=== PATIENT | female | born 1995 | race Caucasian/White ===

== ENCOUNTER 2017-06-28 17:57 | Emergency (ER) | payer MEDICAID, OTHER ==
[~2017-06-28] VITALS: Ht 154.9 cm; Wt 104.0 kg
[2017-06-28 18:08] VITALS: Ht 154.9 cm; Wt 104.0 kg
--- NOTE | 2017-06-28 20:00 | RADRPT ---
PROCEDURE: US OB. CLINICAL INDICATION: Vaginal bleeding Positive TECHNIQUE: Transabdominal and transvaginal views of the pelvis are available for review. COMPARISON: No prior studies are available for comparison. FINDINGS: Uterus: No evidence of masses and normal in size estimated at 8.2 x 6 x 5.8 cm. Endometrial cavity: Intrauterine gestational sac, yolk sac and pole are present with the foll owing information: [place]-rump length:1.58 cm heart rate:NOT DETECTED Gestational sac:3.17 cm Ultrasound estimated gestational age:8 weeks 1 day Small hypoechoic subchorionic hemorrhage measures 1.2cm. Right ovary/adnexa: The ovary is not visualized No adnexal mass lesion is seen. Left ovary/adnexa: The ovary is not visualized. No adnexal mass lesion is seen. Cul-de-sac: There is no free fluid. RPTAT:HJJR IMPRESSION: 1. Lack of detectable heart tones consistent with embryonic demise at an estimated gestational age of 8 weeks 1 day. 2. Small subchorionic hemorrhage of 1.2 cm. 3. Critical results are discussed by telephone with the patient's emergency room after provider, Jefe Atkins, at 19:59 Physician Sita Date Time Electronically viewed and signed by Physician Sita on 06/28/2017 19:59 JR/
[2017-06-28 20:25] VITALS: BP 142/80; PULSE 97; RESP 20; TEMP 98.1
--- NOTE | 2017-06-28 20:29 | ERD ---
ER Documentation Chief Complaint Date/Time DATE: 06/28/17 TIME: 20:26 Chief Complaint Pt referred by clinic for abnormal ultrasound, 7 weeks . HPI 22-year-old female patient who is a presents to the ED for ultrasound. Patient was sent here by Dr. Amaya at her [facility] and was told that she did not have any heart tones. States that her last menses was on April 13, 2017. Denies any chest pain, shortness of breath, abdominal pain , nausea, vomiting, vaginal discharge, vaginal bleeding, dysuria, urgency, frequency. ROS All systems reviewed and are negative except as per history of present illness. Allergies Allergies: Coded Allergies: No Known Allergy (Unverified , 06/28/17) PMhx/Soc Medical and Surgical Hx: pt denies Medical Hx, pt denies Surgical Hx Hx Alcohol Use: No Hx Substance Use: No Hx Tobacco Use: No Smoking Status: Never smoker Physical Exam Vitals Vital Signs Date Time Temp Pulse Resp B/P Pulse Ox O2 Delivery O2 Flow Rate FiO2 06/28/17 20:25 98.1 97 20 142/80 98 Room Air 06/28/17 18:08 99.3 104 16 146/81 100 Physical Exam Const: Hzz-[id number], well-nourished. In no acute distress. Head: Atraumatic, normocephalic Eyes: Normal Conjunctiva without injection. No purulent discharge. ENT: Normal external ear, nose. Moist oropharynx without tonsillar exudates. Non -erythematous pharynx. Uvula midline. No drooling. No trismus. Neck: No cervical midline tenderness. Full range of motion. No meningismus. No cervical lymphadenopathy. No JVD. Resp: Clear to auscultation bilaterally. No wheezing, rhonchi, rales, or crackles. No accessory muscle use. No retractions. Cardio: Regular rate and rhythm. No murmurs, rubs or gallops. Abd: Soft, nontender, non distended. Normal bowel sounds. No palpable masses. No rebound tenderness. No guarding. Negative McBurney's point. Negative psoas sign. Negative obturator sign. Skin: No petechiae or rashes Back: No midline tenderness. No CVA tenderness. Ext: No cyanosis, or edema. Neur: Awake and alert. Normal gait. Normal coordination. Psych: Normal Mood and Affect Procedures/MDM 22-year-old female patient with no significant past medical history presents to the ED for a ultrasound. Patient is afebrile nontoxic appearing. Patient has normal vital signs. ultrasound was ordered to further evaluate patient. PROCEDURE: US OB. CLINICAL INDICATION: Vaginal bleeding Positive TECHNIQUE: Transabdominal and transvaginal views of the pelvis are available for review. COMPARISON: No prior studies are available for comparison. FINDINGS: Uterus: No evidence of masses and normal in size estimated at 8.2 x 6 x 5.8 cm. Endometrial cavity: Intrauterine gestational sac, yolk sac and pole are present with the following information: [place]-rump length: 1.58 cm heart rate: NOT DETECTED Gestational sac: 3.17 cm Ultrasound estimated gestational age: 8 weeks 1 day Small hypoechoic subchorionic hemorrhage measures 1.2cm. Right ovary/adnexa: The ovary is not visualized No adnexal mass lesion is seen. Left ovary/adnexa: The ovary is not visualized. No adnexal mass lesion is seen. Cul-de-sac: There is no free fluid. RPTAT:HJJR IMPRESSION: 1. Lack of detectable heart tones consistent with embryonic demise at an estimated gestational age of 8 weeks 1 day. 2. Small subchorionic hemorrhage of 1.2 cm. 3. Critical results are discussed by telephone with the patient's emergency room after provider, Stephanie Atkins, at 19:59 The ultrasound indication says that there is vaginal bleeding however patient is not having any vaginal bleeding. Patient has no detectable heart tones consistent with an embryonic demise at estimated 8 weeks and 1 day. Discussion of obtaining further blood work was offered to patient at this time however she stated that blood work was obtained as well as ultrasound at patient's clinic. She stated that she would like to follow-up with Dr. Amaya, her [facility] tomorrow for further discussion of the next plan of action. I discussed with her that since she has a small subchorionic hemorrhage of 1.2 cm, that she may need RhoGam due to her blood type being O-. I offered patient the treatment here in the ED however she stated that she would like to follow-up with her [facility]. Low suspicion for symptomatic anemia, ectopic , sepsis, PID, appendicitis, ovarian torsion, tubo-ovarian abscess, surgical abdomen, or other emergent conditions. Patient was educated that there is a risk for threatened . Patient to follow up with [facility] tomorrow for further evaluation and treatment. Patient is to return sooner to the ED for any worsening symptoms. Patient's questions were answered. Patient understood and agreed with discharge plan. Departure Diagnosis: Primary Impression: Encounter for ultrasound Condition: Stable Patient Instructions: Understanding Miscarriage: Emotions, Understanding Miscarriage: Trying Again, Possible Miscarriage (Threatened ) Referrals: [facility] YOU HAVE RECEIVED A MEDICAL SCREENING EXAM AND THE RESULTS INDICATE THAT YOU DO NOT HAVE A CONDITION THAT REQUIRES URGENT TREATMENT IN THE EMERGENCY DEPARTMENT. FURTHER EVALUATION AND TREATMENT OF YOUR CONDITION CAN WAIT UNTIL YOU ARE SEEN IN YOUR DOCTORS OFFICE WITHIN THE NEXT 1-2 DAYS. IT IS YOUR RESPONSIBILITY TO MAKE AN APPOINTMENT FOR FOLOW-UP CARE. IF YOU HAVE A PRIMARY DOCTOR --you should call your primary doctor and schedule an appointment IF YOU DO NOT HAVE A PRIMARY DOCTOR YOU CAN CALL OUR PHYSICIAN REFERRAL HOTLINE AT IF YOU CAN NOT AFFORD TO SEE A PHYSICIAN YOU CAN CHOSE FROM THE FOLLOWING [facility] [address] [facility]. [facility] [address] [facility] [facility] [address] [facility] [facility] [address] [facility] [address] [facility]. [facility]. [address] [facility]. [facility] YOU HAVE RECEIVED A MEDICAL SCREENING EXAM AND THE RESULTS INDICATE THAT YOU DO NOT HAVE A CONDITION THAT REQUIRES URGENT TREATMENT IN THE EMERGENCY DEPARTMENT. FURTHER EVALUATION AND TREATMENT OF YOUR CONDITION CAN WAIT UNTIL YOU ARE SEEN IN YOUR DOCTORS OFFICE WITHIN THE NEXT 1-2 DAYS. IT IS YOUR RESPONSIBILITY TO MAKE AN APPOINTMENT FOR FOLOW-UP CARE. IF YOU HAVE A PRIMARY DOCTOR --you should call your primary doctor and schedule and appointment IF YOU DO NOT HAVE A PRIMARY DOCTOR YOU CAN CALL OUR PHYSICIAN REFERRAL HOTLINE AT . IF YOU CAN NOT AFFORD TO SEE A PHYSICIAN YOU CAN CHOSE FROM THE FOLLOWING [facility] INSTITUTIONS: [facility] [address] [place] [address] [facility] [address] [place] [address] [facility] [address] [place] [address] [facility] URGENT CARE/SPECIALTIES Additional Instructions: FOLLOW UP WITH YOUR [facility] TOMORROW for further evaluation and treatment.Return to this facility if you are not improving as expected -vaginal bleeding, fever, worsening abdominal pain, vomiting, etc. STEPHANIE ATKINS PA-C Jun 28, 2017 20:29
== END 2017-06-28 20:26 | disposition home or self-care (01) ==
LOC: FTE 17:57
DX: Z36 Encounter for antenatal screening of mother (principal)
CPT/HCPCS: 76801; 76817; Z7502

== ENCOUNTER 2017-07-17 04:42 | Emergency (ER) | payer MEDICAID ==
[~2017-07-17] VITALS: Ht 162.6 cm; Wt 104.0 kg
[2017-07-17 04:44] VITALS: Ht 162.6 cm; Wt 104.0 kg
--- NOTE | 2017-07-17 06:33 | ERD ---
ER Documentation Chief Complaint Date/Time DATE: 07/17/17 TIME: 06:32 Chief Complaint 10 wks , vag bleeding w/ pelvic pain since last night HPI 22-year-old female who is 10 weeks , A0 presents emergency department with vaginal bleeding and pelvic pain that started last night. Patient states that she went to get an ultrasound at [place], they did a vaginal ultrasound and she developed pain and cramping since then. She has been going through approximately 1-2 pads per hour, has had diffuse pelvic cramping. She has not had any fevers or chills, chest pain, shortness of breath. Her last menstrual period was on April 13. ROS All systems reviewed and are negative except as per history of present illness. Medications Home Meds Active Scripts Hydrocodone/Acetaminophen ([place] 5-325 Tablet) 1 Each Tablet, 1 TAB PO Q6H Y for PAIN, #10 TAB Prov:AVRIL BLUNT PA-C 07/17/17 Allergies Allergies: Coded Allergies: No Known Allergy (Unverified , 06/28/17) PMhx/Soc Medical and Surgical Hx: pt denies Medical Hx, pt denies Surgical Hx Hx Alcohol Use: No Hx Substance Use: No Hx Tobacco Use: No Smoking Status: Never smoker Physical Exam Vitals Vital Signs Date Time Temp Pulse Resp B/P Pulse Ox O2 Delivery O2 Flow Rate FiO2 07/17/17 04:44 98.0 91 20 117/90 100 Physical Exam General: Well-developed, well-nourished. The patient appears in no acute distress. HEENT: Head is normocephalic, atraumatic. No scleral icterus. Pupils are equal , round, and reactive. Oral mucous membranes are moist. No pharyngeal erythema. Neck: Supple. Nontender. Lungs: Clear to auscultation. Normal air movement. Heart: Regular rate and rhythm. S1 and S2 are normal. No murmurs, gallops, or rubs. Abdomen: Soft, nontender, nondistended. Bowel sounds are normoactive. : OS is closed, no hemorrhaging, slow oozing blood in vaginal vault Extremities: No clubbing or cyanosis. Normal pulses. Moving extremities x 4. No weakness. Neurologic: Alert and oriented 3. No focal deficits. Skin: Normal turgor. No rash or lesions. Result Diagram: 07/17/17 0640 Results 24 hrs Laboratory Tests Test 07/17/17 06:40 07/17/17 06:46 White Blood Count 14.810^3/ul Red Blood Count 4.6310^6/ul Hemoglobin 13.1g/dl Hematocrit 38.4% Mean Corpuscular Volume 82.9fl Mean Corpuscular Hemoglobin 28.3pg Mean Corpuscular Hemoglobin Concent 34.1g/dl Red Cell Distribution Width 14.2% Platelet Count 20753^3/UL Mean Platelet Volume 11.2fl Neutrophils % 67.8% Lymphocytes % 21.9% Monocytes % 5.7% Eosinophils % 3.2% Basophils % 0.4% Nucleated Red Blood Cells % 0.0/100WBC Neutrophils # (Manual) 10.010^3/ul Lymphocytes # 3.210^3/ul Monocytes # 0.910^3/ul Eosinophils # 0.510^3/ul Basophils # 0.110^3/ul Nucleated Red Blood Cells # 0.010^3/ul Beta HCG, Quantitative 5856.7mIU/ml Urine Color YELLOW Urine Clarity CLEAR Urine pH 7.0 Urine Specific [place] 1.021 Urine Ketones NEGATIVEmg/dL Urine Nitrite NEGATIVEmg/dL Urine Bilirubin NEGATIVEmg/dL Urine Urobilinogen 1+mg/dL Urine Leukocyte Esterase NEGATIVELeu/ul Urine Microscopic RBC > 182/HPF Urine Microscopic WBC 2/HPF Urine Bacteria FEW/HPF Urine Hemoglobin 2+mg/dL Urine Glucose NEGATIVEmg/dL Urine Total Protein NEGATIVEmg/dl Current Medications Medications (Trade) Dose Ordered Sig/Vanessa Route PRN Reason Start Time Stop Time Status Last Admin Dose Admin Morphine Sulfate (morphine) 4 mg ONCE STAT IV 07/17/17 06:37 07/17/17 06:38 DC 07/17/17 06:58 Ondansetron HCl (Zofran Inj) 4 mg ONCE STAT IV 07/17/17 06:37 07/17/17 06:38 DC 07/17/17 06:57 DIAGNOSTIC IMAGING REPORT Patient: HANNAH GAITAN : 1995 Age: 22 Sex: F MR #: [id number] DOS: 07/17/17 0609 Ordering MD: AVRIL BLUNT PA-C Location: [facility] Room/Bed: PROCEDURE: US OB. CLINICAL INDICATION: . Evaluate size and dates. Vaginal bleeding. TECHNIQUE: Transabdominal and transvaginal imaging of the gravid uterus was performed. Images are reviewed on a high-resolution PACS workstation. COMPARISON: OB ultrasound 06/28/2017 FINDINGS: Intrauterine is identified. The crown-rump length equals 1.68 cm. The estimated gestational age equals 8 weeks 1 day by ultrasound criteria. No cardiac activity is identified. No subchorionic hemorrhage is identified. No other acute abnormality is seen. The ovaries are not visualized. IMPRESSION: 1. Single live intrauterine with an estimated gestational age of 8 weeks 1 day by ultrasound criteria. There has been no growth since the prior study performed 3 weeks earlier. 2. Once again, findings are consistent with demise with no cardiac activity, a similar finding since the prior study. RPTAT: PP .Adolfo Sommer MD, Date Time Electronically viewed and signed by .Adolfo Sommer MD, MD on 07/17/2017 07:46 .B/ CC: AVRIL BLUNT PA-C Procedures/MDM ED course: Patient had lab work, urine, as well as a ultrasound obtained. She was given morphine 4 mg and Zofran 4 mg IV. Medical decision makin-year-old female presents with an intrauterine , without cardiac activity consistent with demise. She has had multiple ultrasounds including one here several weeks ago as well as one yesterday without evidence of cardiac activity. Today's ultrasound again shows no cardiac activity, she comes in with vaginal bleeding. Patient was informed that there is evidence of demise, she was given signs and symptoms of a miscarriage as well. She is to return to the emergency department for any worsening symptoms, otherwise recheck with her OB in 2-4 days. RhoGam was administered at this time because of patient's Rh status is negative. Departure Diagnosis: Primary Impression: demise Additional Impression: Rh negative status during in first trimester Condition: AVRIL Riggs PA-C Jul 17, 2017 06:33
[2017-07-17] MEDS ORDERED: ONDANSETRON 4 MG INJ IV STA (06:37)
[2017-07-17] MEDS ORDERED: morphine 4 MG/ML VIAL IV STA ×2 (06:37→09:06)
[2017-07-17 07:27] LABS: BASOPHIL # 0.1 10^3/ul (0.0-0.1); BASOPHILS % 0.4 % (0.0-2.0); EOSINOPHILS # 0.5 10^3/ul (0.0-0.5); EOSINOPHILS % 3.2 % (0.0-7.0); HEMATOCRIT 38.4 % (37.0-47.0); HEMOGLOBIN 13.1 g/dl (12.0-16.0); LYMPHOCYTES # 3.2 10^3/ul (0.8-2.9); LYMPHOCYTES % 21.9 % (15.0-51.0); MEAN CORPUSCULAR HEMOGLOBIN 28.3 pg (29.0-33.0); MEAN CORPUSCULAR HGB CONC 34.1 g/dl (32.0-37.0); MEAN CORPUSCULAR VOLUME 82.9 fl (82.0-101.0); MEAN PLATELET VOLUME 11.2 fl (7.4-10.4); MONOCYTE # 0.9 10^3/ul (0.3-0.9); MONOCYTES % 5.7 % (0.0-11.0); NEUTROPHILS % 67.8 % (39.0-77.0); PLATELET COUNT 364 10^3/UL (140-415); RED BLOOD COUNT 4.63 10^6/ul (4.20-5.40); RED CELL DISTRIBUTION WIDTH 14.2 % (11.5-14.5); WHITE BLOOD COUNT 14.8 10^3/ul (4.8-10.8)
[2017-07-17 07:34] LABS: ADD UMIC YES; UR ASCORBIC ACID 40 mg/dL (NEGATIVE); UR BACTERIA FEW /HPF (NONE SEEN); UR BILIRUBIN (Dip) NEGATIVE (NEGATIVE); UR BLOOD (Dip) 2+ mg/dL (NEGATIVE); UR CLARITY CLEAR (CLEAR); UR COLOR YELLOW (YELLOW); UR GLUCOSE (Dip) NEGATIVE (NEGATIVE); UR KETONES (Dip) NEGATIVE (NEGATIVE); UR LEUKOCYTE ESTERASE (Dip) NEGATIVE Leu/ul (NEGATIVE); UR NITRITE (Dip) NEGATIVE (NEGATIVE); UR RBC > 182 /HPF (0-5); UR SPECIFIC GRAVITY (Dip) 1.021 (1.003-1.030); UR TOTAL PROTEIN (Dip) NEGATIVE (NEGATIVE); UR UROBILINOGEN (Dip) 1+ mg/dL (NEGATIVE)
--- NOTE | 2017-07-17 07:46 | RADRPT ---
PROCEDURE: US OB. CLINICAL INDICATION: . Evaluate size and dates. Vaginal bleeding. TECHNIQUE: Transabdominal and transvaginal imaging of the gravid uterus was performed. Images are reviewed on a high-resolution PACS workstation. COMPARISON: OB ultrasound 06/28/2017 FINDINGS: Intrauterine is identified. The crown-rump length equals 1.68 cm. The estimated gestatio nal age equals 8 weeks 1 day by ultrasound criteria. No cardiac activity is identified. No naylor bchorionic hemorrhage is identified. No other acute abnormality is seen. The ovaries are not visual ized. IMPRESSION: 1. Single live intrauterine with an estimated gestational age of 8 weeks 1 day by ultraso und criteria. There has been no growth since the prior study performed 3 weeks earlier. 2. Once again, findings are consistent with demise with no cardiac activity, a similar finding since the prior study. RPTAT: PP .Adolfo Sommer MD, MD Date Time Electronically viewed and signed by .Adolfo Sommer MD, on 07/17/2017 07:46 .B/
[2017-07-17] MEDS ORDERED: HYDR-906 PO (08:26)
[2017-07-17] MEDS ORDERED: KETOROLAC 30 MG INJ IV STA (09:15)
[2017-07-17 09:39] VITALS: BP 129/69; PULSE 88; RESP 20; TEMP 98
== END 2017-07-17 09:41 | disposition home or self-care (01) ==
LOC: FTE 04:42
DX: O02.1 Missed abortion (principal); Z67.11 Type A blood, Rh negative
CPT/HCPCS: 36415; 76801; 76817; 81001; 84702; 85025; 86900; 86901; 96374; 96375; 96376; J2270; J2405; J2790; Z7502

== ENCOUNTER 2019-03-12 06:42 | Emergency (ER) | payer MEDICAID ==
[~2019-03-12] VITALS: Wt 107.3 kg
[~2019-03-12 06:42] MED LIST: HYDR-4011 PO
[2019-03-12] MEDS ORDERED: ACETAMINOPHEN 325 MG TAB PO STA (08:29)
[2019-03-12] MEDS ORDERED: SOD CHLORIDE 0.9% 1,000 ML IV STA (08:29)
[2019-03-12] MEDS ORDERED: CEFTRIAXONE 1 GM/50 ML (PMX) 50 ML IVPB ONE (10:00)
--- NOTE | 2019-03-12 10:01 | ERD ---
ER Documentation Chief Complaint Chief Complaint vag bleed, 10 wks preg HPI 23-year-old woman 10 weeks by dates presents with mild pelvic cramping and intermittent vaginal bleeding x2 days, she denies fevers or chills, no chest pain or shortness of breath, no dysuria, no headache or blurry vision, no neck pain or neck stiffness. ROS All systems reviewed and are negative except as per history of present illness. Medications Home Meds Active Scripts Cephalexin* (Keflex*) 500 Mg Capsule, 500 MG PO QID for 5 Days, CAP Prov:ADRIAN PETERSON MD 03/12/19 Hydrocodone/Acetaminophen ([place] 5-325 Tablet) 1 Each Tablet, 1 TAB PO Q6H PRN for PAIN, #10 TAB Prov:AVRIL BLUNT PA-C 07/17/17 Allergies Allergies: Coded Allergies: No Known Allergy (Unverified , 06/28/17) PMhx/Soc Medical and Surgical Hx: pt denies Medical Hx, pt denies Surgical Hx Hx Alcohol Use: No Hx Substance Use: No Hx Tobacco Use: No Smoking Status: Never smoker FmHx Family History: No diabetes Physical Exam Vitals Vital Signs Date Temp Pulse Resp B/P (MAP) Pulse Ox O2 O2 Flow FiO2 Time Delivery Rate 03/12/19 99.0 96 18 165/85 100 Room Air 10:42 (111) 03/12/19 98.3 88 20 150/87 99 06:55 (108) Physical Exam GENERAL: Well-developed, obese, well-hydrated, in no apparent distress, looks nontoxic in appearance HEENT: Moist mucous membranes, pink conjunctiva, no cervical spine tenderness or step-off deformities, no goiter, no jaundice or icterus, extraocular movements intact without pain. No submandibular induration, and no pharyngeal erythema NEURO: Alert and oriented 3, cranial nerves II through XII intact bilaterally, pupils equal round reactive to light, CARDIAC: Regular rate and rhythm, no murmurs rubs or gallops LUNGS: Clear bilaterally no wheezing crackles or stridor ABDOMEN: Soft nontender, no guarding, no rigidity, no rebound, no psoas sign no obturator sign. Result Diagram: 03/12/1990703/12/19907 Results 24 hrs Laboratory Tests Test 03/12/19 09:00 03/12/19 09:08 Urine Color RED Urine Clarity SLIGHTLY CLOUDY Urine pH 7.0 Urine Specific [place] 1.011 Urine Ketones TRACE mg/dL Urine Nitrite NEGATIVE mg/dL Urine Bilirubin NEGATIVE mg/dL Urine Urobilinogen NEGATIVE mg/dL Urine Leukocyte Esterase 3+ Farhad/ul Urine Microscopic RBC > 182 /HPF Urine Microscopic WBC 26 /HPF Urine Squamous Epithelial Cells FEW /HPF Urine Bacteria FEW /HPF Urine Mucus FEW /HPF Urine Hemoglobin 3+ mg/dL Urine Glucose 2+ mg/dL Urine Total Protein 1+ mg/dl White Blood Count 11.9 10^3/ul Red Blood Count 5.14 10^6/ul Hemoglobin 14.0 g/dl Hematocrit 42.6 % Mean Corpuscular Volume 82.9 fl Mean Corpuscular Hemoglobin 27.2 pg Mean Corpuscular Hemoglobin Concent 32.9 g/dl Red Cell Distribution Width 14.0 % Platelet Count 359 10^3/UL Mean Platelet Volume 10.9 fl Immature Granulocytes % 0.400 % Neutrophils % 61.8 % Lymphocytes % 29.5 % Monocytes % 6.2 % Eosinophils % 1.6 % Basophils % 0.5 % Nucleated Red Blood Cells % 0.0 /100WBC Immature Granulocytes # 0.050 10^3/ul Neutrophils # 7.3 10^3/ul Lymphocytes # 3.5 10^3/ul Monocytes # 0.7 10^3/ul Eosinophils # 0.2 10^3/ul Basophils # 0.1 10^3/ul Nucleated Red Blood Cells # 0.0 10^3/ul Sodium Level 139 mmol/L Potassium Level 4.4 mmol/L Chloride Level 103 mmol/L Carbon Dioxide Level 27 mmol/L Anion Gap 9 Blood Urea Nitrogen 7 mg/dl Creatinine 0.39 mg/dl Est Glomerular Filtrat Rate mL/min > 60 mL/min Glucose Level 192 mg/dl Calcium Level 9.7 mg/dl Total Bilirubin 0.4 mg/dl Direct Bilirubin 0.00 mg/dl Indirect Bilirubin 0.4 mg/dl Aspartate Amino Transf (AST/SGOT) 14 IU/L Alanine Aminotransferase (ALT/SGPT) 18 IU/L Alkaline Phosphatase 72 IU/L Total Protein 7.6 g/dl Albumin 4.3 g/dl Globulin 3.30 g/dl Albumin/Globulin Ratio 1.30 Beta HCG, Quantitative 6332.1 mIU/ml Current Medications Medications Dose Sig/Vanessa Start Time Status Last (Trade) Ordered Route PRN Stop Time Admin Dose Reason Admin Sodium 1,000 ml @ Q1H STAT 03/12/19 DC 03/12/19 Chloride 1,000 mls/hr IV 08:29 09:11 03/12/19 09:28 650 mg ONCE STAT 03/12/19 DC 03/12/19 Acetaminophen PO 08: 09:12 (Tylenol 03/12/19 08:30 Tab) Ceftriaxone 50 ml @ ONCE ONCE 03/12/19 DC 03/12/19 Sodium 100 mls/hr IVPB 10:00 10:08 03/12/19 10:29 Procedures/MDM IV line was established patient was placed on lunchroom monitor rhythm strip revealed a sinus rhythm at about 80 bpm with upright P and T waves. Patient was afebrile I administered 1 L normal saline IV and acetaminophen p.o. test positive, urine analysis positive for infection. I administered ceftriaxone 1 g IV. CBC and electrolytes are normal, liver function tests were normal Obstetric pelvic ultrasound was performed revealing demise no heart tones noted Beta-hCG was low at 6332 Reassurance was provided to the patient and her was at the bedside, they will follow-up with her beauty therapist for reevaluation, repeat examination and repeat ultrasound although I did tell her to expect mild bleeding and possibly mild cramping to continue until miscarriage is complete. I did tell her to return to the emergency department if she develops dizziness, heavy bleeding, severe pain, or fever. They understood instructions and agreed to plan. Departure Diagnosis: Primary Impression: Missed Additional Impression: Acute UTI Condition: Good ADRIAN PETERSON MD Mar 12, 2019 10:01
[2019-03-12] MEDS ORDERED: CEPH-443 PO (10:25)
[2019-03-12 10:42] VITALS: BP 165/85; PULSE 96; RESP 18
== END 2019-03-12 10:50 | disposition home or self-care (01) ==
LOC: FTE 06:42
DX: O02.1 Missed abortion (principal); R10.2 Pelvic and perineal pain
CPT/HCPCS: 36415; 76801; 76817; 80053; 81001; 84702; 85025; 86900; 86901; 96361; 96365; J0696; J7030; Z7502; Z7610